=== PATIENT | male | born 1990 | race Caucasian/White ===

== ENCOUNTER 2016-12-29 20:40 | Emergency (ER) | payer OTHER ==
--- NOTE | 2016-12-29 21:49 | ED GI/GU/ABDOMINAL COMPLAINT ---
See Addendum History of Present Illness General Chief Complaint: Abdominal Pain/Flank Pain Stated Complaint: PT IS HAVING HOT AND COLD ,ABDOMINAL PAIN Source: patient Exam Limitations: no limitations Vital Signs & Intake/Output Vital Signs & Intake/Output Vital Signs Date Time Temp Pulse Resp B/P B/P Pulse O2 O2 Flow FiO2 Mean Ox Delivery Rate 12/30 0048 98.0 100 18 108/72 99 Room Air 12/29 2140 Room Air 12/29 2104 98.4 101 22 110/79 98 ED Intake and Output 12/30 0000 12/29 1200 Intake Total Output Total Balance Patient 180 lb Weight Allergies Coded Allergies: No Known Allergies (12/29/16) Reconcile Medications Hyoscyamine (Levsin) 0.125 MG TABLET 1 TAB PO Q4 PRN abdominal spasms Triage Note: PER PT "STINGING THROUGH WHOLE BODY" PT REPORTS WIERD THINGS HAPPENING REPORTS TEMP OF 102 TOOK MOTRIN 7 PM TEMP IN TRIAGE 98.0 ALSO BOWELS KEEP MOVING HURTS TO DRINK WATER Triage Nurses Notes Reviewed? yes Onset: Gradual Duration: day(s): (2) Timing: no prior history Quality/Severity: cramping Severity Numbers: 10 Location: generalized abdomen Radiation: no radiation Activities at Onset: none Prior Abdominal Problems: none Past Sexual History: Unobtainable at this time No Modifying Factors: none HPI: Patient is a 26-year-old male presenting to the emergency department with chief complaint of diffuse abdominal pain, diarrhea reports over 40 episodes of the past 24 hours. Positive fevers up to 102 at home. No recent travel. No sick contacts. Denies chest pain or palpitations or shortness of breath. Denies any blood in stool. Reports dysuria. Denies any penile discharge. Denies taking anything at home to help with symptoms besides Tylenol. seems to be bringing the fever down. No history of similar symptoms here denies recent antibiotic use. (PIYUSH COLLINS) Past History Travel History Traveled to [place] past 21 day No Medical History Any Pertinent Medical History? see below for history Neurological: NONE EENT: NONE Cardiovascular: NONE Respiratory: NONE Gastrointestinal: NONE Hepatic: NONE Renal: NONE Musculoskeletal: NONE Psychiatric: NONE Endocrine: NONE Surgical History Surgical History: non-contributory Psychosocial History What is your primary language Niuean Tobacco Use: Never used Family History Hx Contributory? No (PIYUSH COLLINS) Review of Systems Review of Systems Constitutional: Reports: fever, malaise. Comments Review of systems: See HPI, All other systems negative. Constitutional, no weight loss HEENT: No visual changes no sore throat no congestion Cardiovascular: No chest pain ,palpitation , orthopnea or ankle swelling Skin, no jaundice no rashes Respiratory: No dyspnea cough sputum or hemoptysis GI: pos diarrhea and nausea, no vomiting : No dysuria No hematuria Muscle skeletal: no back pain, no neck pain, Neurologic: No numbness no confusion Psych: No stress anxiety or depression,. Heme/endocrine: No bruising no bleeding no polyuria or polydipsia Immunology: No splenectomy or history of AIDS (PIYUSH COLLINS) Physical Exam Physical Exam General Appearance: well developed/nourished, alert, anxious Gastrointestinal: normal bowel sounds, soft, tenderness Comments: Well-developed well-nourished person in no acute distress HEENT: Pupils equally round and reactive to light and accommodation. Nose is atraumatic. External auditory canal and Tympanic membranes clear. Pharynx normal. No swelling or edema. Neck: Supple, no lymphadenopathy, normal range of motion without pain or tenderness Back: Nontender, no CVA tenderness. Cardiovascular: Regular rate and rhythms no murmurs rubs or gallops, normal JVP Respiratory: Chest nontender. No respiratory distress.breath sounds clear to auscultation bilaterally Abdomen: Soft, tender to palpation over entire abdomen, pos gaurding, nondistended, no appreciable organomegaly. Normal bowel sounds. No ascites Extremity: No edema Neuro: Alert oriented x3 Skin: No appreciable rash on exposed skin, skin is warm and dry. Psych: Mood and affect is normal, memory and judgment is normal. Core Measures ACS in differential dx? No Severe Sepsis Present: No Septic Shock Present: No (PIYUSH COLLINS) Progress Differential Diagnosis: appendicitis, diverticulitis, gastritis Plan of Care: Orders Procedure Date/time Status URINALYSIS 12/30 2343 Complete Add-on Test (ER Only) 12/29 2331 Active LIPASE 12/30 2223 Complete AMYLASE 12/30 2223 Complete C-REACTIVE PROTEIN 12/29 2148 Complete COMPREHENSIVE METABOLIC PANEL 12/29 2148 Complete CBC WITHOUT DIFFERENTIAL 12/29 2148 Complete Laboratory Tests 12/30/16 0010: Urine Color YEL, Urine Clarity CLEAR, Urine pH 6.5, Ur Specific [place] <= 1.005 , Urine Protein 30 H, Urine Ketones TRACE H, Urine Nitrite NEG, Urine Bilirubin NEG, Urine Urobilinogen 0.2, Ur Leukocyte Esterase NEG, Ur Microscopic SEDIMENT EXAMINED, Urine RBC RARE, Ur Epithelial Cells RARE, Urine Hemoglobin SMALL H, Urine Glucose NEG 12/29/16 2224: Anion Gap 14, Estimated GFR > 60, BUN/Creatinine Ratio 11.7, Glucose 98, Calcium 9.4, Total Bilirubin 1.1, AST 17, ALT 28, Alkaline Phosphatase 58, C-Reactive Prot, Quant 8.2 H, Total Protein 7.3, Albumin 4.1, Globulin 3.2, Albumin/ Globulin Ratio 1.3, Amylase 51, Lipase 38, CBC w Diff NO MAN DIFF REQ, RBC 5.48, MCV 84.6, MCH 28.4, RDW 13.2, MPV 8.4, Gran % 78.8 H, Lymphocytes % 11.7 L, Monocytes % 9.0, Eosinophils % 0.5, Basophils % 0 L, Absolute Granulocytes 8.1 H, Absolute Lymphocytes 1.2, Absolute Monocytes 0.9 H, Absolute Eosinophils 0, Absolute Basophils 0, PUBS MCHC 33.6 Microbiology 12/29 2148 STOOL: Stool Culture - CAN Cancelled: Cancelled via OE: PATIENT BEING D/LONG. Diagnostic Imaging: Viewed by Me: CT Scan. Discussed w/RAD: CT Scan. Radiology Impression: PATIENT: JULIUS GONZALEZ PRESENT AGE: 26 PATIENT ACCOUNT NO: [id number] : 91 LOCATION: [facility] ([facility] ORDERING PHYSICIAN: PIYUSH MCKENZIE SERVICE DATE: 12/29/16 EXAM TYPE: CAT - CT ABD & PELVIS W IV CONTRAST EXAMINATION: CT ABDOMEN AND PELVIS WITH CONTRAST CLINICAL INFORMATION: Lower abdominal pain. Diarrhea. COMPARISON: None TECHNIQUE: Multidetector volumetric imaging was performed of the abdomen and pelvis before and after the IV administration of 95 mL of Optiray 320 intravenous contrast. Sagittal and coronal reformatted images were obtained on the technologist's workstation. DLP: 297 mGy-cm FINDINGS: LUNG BASES: The visualized lung bases are unremarkable. LIVER, GALLBLADDER, AND BILIARY TREE: The liver is normal in size, shape, and attenuation. No focal hepatic lesion or biliary ductal dilatation is present. The gallbladder is unremarkable with no evidence of radiopaque gallstones, gallbladder wall thickening, or obvious pericholecystic inflammatory changes. PANCREAS: Unremarkable. SPLEEN: Unremarkable. ADRENAL GLANDS: Unremarkable. KIDNEYS AND URETERS: The kidneys are normal in size, shape, and attenuation. No hydronephrosis, hydroureter, or calculi seen. No perinephric stranding. BLADDER: Unremarkable. GASTROINTESTINAL TRACT: The stomach and small bowel are unremarkable. No dilated loops of bowel or evidence of obstruction. Normal appendix. No colonic wall thickening or inflammatory change. No free air or free fluid. ABDOMINAL WALL: No significant hernia is appreciated. LYMPH NODES: Normal. VASCULAR: Unremarkable. PELVIC VISCERA: The prostate and seminal vesicles are unremarkable. OSSEOUS STRUCTURES: No acute or suspicious osseous abnormality. IMPRESSION: Unremarkable CT of the abdomen and pelvis. No inflammatory changes. DICTATED BY: LALITHA WASHINGTON,ARMOND DATE/TIME DICTATED:12/29/162332 PRODUCTION CONSULTANT:MILAGRO DATE/TIME TRANSCRIBED:12/29/162332 CONFIDENTIAL, DO NOT COPY WITHOUT APPROPRIATE AUTHORIZATION. <Electronically signed in Other Vendor System> SIGNED BY: LALITHA WASHINGTON,ARMOND 12/29/162339 Initial ED EKG: none Comments: Patient feeling relief after fluids, Toradol and morphine. He was informed of all upper results and imaging study results. Unable to provide stool sample here in the emergency department. He was given a prescription and a cup to provide one from home. He will return for worsening symptoms or concerns. Educated on following up with his primary care physician for reevaluation in the next 24-48 hours if symptoms do not improve. pt non-toxic. (PIYUSH COLLINS) Departure Departure Time of Disposition: 2341 Disposition: HOME OR SELF CARE Condition: Stable Clinical Impression Primary Impression: Abdominal pain Qualifiers: Abdominal location: generalized Qualified Code: R10.84 - Generalized abdominal pain Secondary Impressions: Diarrhea Qualifiers: Diarrhea type: unspecified type Qualified Code: R19.7 - Diarrhea, unspecified Referrals: PATIENT HAS NO PRIMARY CARE DR (PCP/Family) FRANCISCO RICHARDS MD Additional Instructions: Follow-up with gastroenterology if symptoms persist. Make sure you return a stool sample to the [facility] to be analyzed. Take Levsin as prescribed to help with abdominal discomfort and diarrhea. Increase fluid intake. Return for worsening symptoms or concerns. Departure Forms: Customer Survey General Discharge Information Prescriptions: Current Visit Scripts Hyoscyamine (Levsin) 1 TAB PO Q4 PRN abdominal spasms #20 TAB (PIYUSH COLLINS) PA/STITCH RUBBER Co-Sign Statement Statement: ED Attending supervision documentation- [] I saw and evaluated the patient. I have also reviewed all the pertinent lab results and diagnostic results. I agree with the findings and the plan of care as documented in the PA's/STITCH RUBBER's documentation. [x] I have reviewed the ED Record and agree with the PA's/STITCH RUBBER's documentation. [] Additions or exceptions (if any) to the PAs/STITCH RUBBER's note and plan are summarized below: [] (AMY WASHINGTON,VANGIE Gonzalez)
[2016-12-29 22:31] LABS: ABSOLUTE BASOPHIL COUNT 0 /CUMM (0.0-0.2); ABSOLUTE EOSINOPHIL COUNT 0 /CUMM (0.0-0.7); ABSOLUTE GRANULOCYTE CT 8.1 /CUMM (1.4-6.5); ABSOLUTE LYMPH COUNT 1.2 /CUMM (1.2-3.4); ABSOLUTE MONOCYTE COUNT 0.9 /CUMM (0.10-0.60); BASOPHIL % 0 % (0.0-2.0); EOSINOPHIL % 0.5 % (0-5); GRANULOCYTE % 78.8 % (42.2-75.2); HEMATOCRIT 46.4 % (42-52); MEAN CORPUSCULAR HGB 28.4 PG (27.0-31.0); MEAN CORPUSCULAR HGB CONC 33.6 G/DL (33.0-37.0); MEAN CORPUSCULAR VOLUME 84.6 FL (80.0-94.0); MEAN PLATELET VOLUME 8.4 FL (7.4-10.4); PLATELET COUNT 128 /CUMM (130-400); RBC DISTRIBUTION WIDTH 13.2 % (11.5-14.5); RED BLOOD CELL CT 5.48 /CUMM (4.70-6.10); WHITE BLOOD CELL COUNT 10.3 /CUMM (4.8-10.8)
--- NOTE | 2016-12-29 23:40 | CT SCAN REPORT ---
EXAMINATION: CT ABDOMEN AND PELVIS WITH CONTRAST CLINICAL INFORMATION: Lower abdominal pain. Diarrhea. COMPARISON: None TECHNIQUE: Multidetector volumetric imaging was performed of the abdomen and pelvis before and after the IV administration of 95 mL of Optiray 320 intravenous contrast. Sagittal and coronal reformatted images were obtained on the technologist's workstation. DLP: 297 mGy-cm FINDINGS: LUNG BASES: The visualized lung bases are unremarkable. LIVER, GALLBLADDER, AND BILIARY TREE: The liver is normal in size, shape, and attenuation. No focal hepatic lesion or biliary ductal dilatation is present. The gallbladder is unremarkable with no evidence of radiopaque gallstones, gallbladder wall thickening, or obvious pericholecystic inflammatory changes. PANCREAS: Unremarkable. SPLEEN: Unremarkable. ADRENAL GLANDS: Unremarkable. KIDNEYS AND URETERS: The kidneys are normal in size, shape, and attenuation. No hydronephrosis, hydroureter, or calculi seen. No perinephric stranding. BLADDER: Unremarkable. GASTROINTESTINAL TRACT: The stomach and small bowel are unremarkable. No dilated loops of bowel or evidence of obstruction. Normal appendix. No colonic wall thickening or inflammatory change. No free air or free fluid. ABDOMINAL WALL: No significant hernia is appreciated. LYMPH NODES: Normal. VASCULAR: Unremarkable. PELVIC VISCERA: The prostate and seminal vesicles are unremarkable. OSSEOUS STRUCTURES: No acute or suspicious osseous abnormality. IMPRESSION: Unremarkable CT of the abdomen and pelvis. No inflammatory changes.
[2016-12-30] MEDS ORDERED: LEVSIN0.125 M1 PO (00:07)
[2016-12-30 00:48] VITALS: BP 108/72
== END 2016-12-30 00:53 ==
LOC: ERH 20:40
PROVIDERS: Physician Assistant
DX: R10.84 Generalized abdominal pain (principal); R19.7 Diarrhea, unspecified
CPT/HCPCS: 74177; 81001; 87045; 96361; 96374; 96375; J1885